=== PATIENT | female | born 1990 | race Two or more races ===

== ENCOUNTER 2022-10-29 08:23 | Emergency (ER) | payer MEDICARE, MEDICAID ==
[~2022-10-29] VITALS: Ht 157.5 cm; Wt 50.0 kg
[2022-10-29 09:00] VITALS: BP 123/79
[2022-10-29 09:15] LABS: Calcium 8.5 mg/dL (8.5-10.1); Potassium 3.9 mmol/L (3.5-5.1)
[2022-10-29 09:20] LABS: BUN/Creatinine Ratio 24.2 (10.0-20.0); Bilirubin, Total 0.3 mg/dL (0.2-1.0); Total Protein 6.4 g/dL (6.4-8.2)
[2022-10-29 09:31] LABS: Basophils # (auto) 0 10 ^3/uL (0-0.2); Basophils % (auto) 0.3 % (0.0-2.0); Eosinophils # (auto) 0.1 10 ^3/uL (0-0.8); Eosinophils % (auto) 0.8 % (0.0-7.0); Hemoglobin 13.8 g/dL (12.2-16.2); Lymphocytes # (auto) 0.9 10 ^3/uL (0.4-5.4); Lymphocytes % (auto) 11.5 % (10.0-50.0); Mean Corpuscular Hemoglobin 33.9 pg (28.0-32.0); Mean Corpuscular Hgb Conc. 33.8 g/dL (32.0-36.0); Mean Corpuscular Volume 100.3 fL (80.0-100.0); Monocytes # (auto) 0.3 10 ^3/uL (0-1.3); Monocytes % (auto) 3.5 % (0.0-12.0); Neutrophils # (auto) 6.2 10 ^3/uL (1.6-8.6); Neutrophils % (auto) 83.9 % (37.0-80.0); Nucleated Red Blood Cells % 0.1 %; Red Blood Cells 4.09 10^6/uL (4.0-5.20); Red Cell Distribution Width 14.4 % (11.8-14.3); White Blood Cell 7.4 10^3/uL (4.4-10.8)
== END 2022-10-29 11:25 | disposition home or self-care (01) ==
LOC: ER 08:23 → EDBD 08:23 → ER 11:25
DX: E11.649 Type 2 diabetes mellitus with hypoglycemia without coma (principal)
CPT/HCPCS: 36415; 80053; 82962; 83036

== ENCOUNTER 2023-04-07 03:56 | Inpatient (IN) | payer MEDICARE, MEDICAID ==
[~2023-04-07] VITALS: Ht 160 cm; Wt 45.3 kg
[2023-04-07 04:35] LABS: Basophils # (auto) 0 10 ^3/uL (0-0.2); Lymphocytes # (auto) 1.7 10 ^3/uL (0.4-5.4); Lymphocytes % (auto) 17.3 % (10.0-50.0); Monocytes # (auto) 0.5 10 ^3/uL (0-1.3); Neutrophils # (auto) 7.2 10 ^3/uL (1.6-8.6)
[2023-04-07 04:36] LABS: Basophils % (auto) 0.4 % (0.0-2.0); Eosinophils # (auto) 0.4 10 ^3/uL (0-0.8); Eosinophils % (auto) 4.1 % (0.0-7.0); Hematocrit 49.9 % (36.0-46.0); Hemoglobin 16.7 g/dL (12.2-16.2); Mean Corpuscular Hemoglobin 34.1 pg (28.0-32.0); Mean Corpuscular Hgb Conc. 33.4 g/dL (32.0-36.0); Mean Corpuscular Volume 101.9 fL (80.0-100.0); Monocytes % (auto) 4.9 % (0.0-12.0); Neutrophils % (auto) 73.3 % (37.0-80.0); Red Blood Cells 4.89 10^6/uL (4.0-5.20); Red Cell Distribution Width 13.7 % (11.8-14.3); White Blood Cell 9.8 10^3/uL (4.4-10.8)
[2023-04-07 04:50] VITALS: PULSE 101; RESP 18; O2SAT 97
[2023-04-07 04:50] LABS: Alanine Aminotransferase 13 U/L (7-40); Albumin 4.1 g/dL (3.2-4.8); Alkaline Phosphatase 55 U/L (46-116); Anion Gap 4.1 (5-15); Aspartate Aminotransferase < 8 U/L (13-40); BUN/Creatinine Ratio 17.8 (10.0-20.0); Blood Urea Nitrogen 13 mg/dL (9-23); Calcium 9.2 mg/dL (8.7-10.4); Carbon Dioxide 30.9 mmol/L (20-30); Chloride 111 mmol/L (98-107); Magnesium 1.8 mg/dL (1.6-2.6); Potassium 4.1 mmol/L (3.5-5.1); Sodium 146 mmol/L (136-145)
[2023-04-07 04:51] LABS: Bilirubin, Total 0.5 mg/dL (0.2-1.0); Partial Thromboplastin Time 22.4 SEC (24.5-34.5); Prothrombin Time 10.5 sec (9.3-11.8); Total Protein 6.7 g/dL (5.7-8.2)
[2023-04-07 05:03] LABS: Glucose 30 mg/dL (74-106)
[2023-04-07] MEDS ORDERED: DEXTROSE 50% SYRINGE 50 ML IV ONE (05:07)
[2023-04-07] MEDS ORDERED: DEXTROSE 10% 1,000 ML IV ONE ×2 (05:15→05:44)
[2023-04-07] MEDS ORDERED: DEXTROSE (50%) 50ML SYRG IV ONE (06:30)
[2023-04-07] MEDS ORDERED: SODIUM CHLORIDE 0.9% 1,000 ML IV ONE ×2 (07:00)
[2023-04-07 07:39] LABS: Urine Bacteria FEW /hpf (None Seen); Urine Blood 1+ /uL (Negative); Urine Clarity Clear (Clear); Urine Hyaline Cast FEW /lpf (0 - 2); Urine Protein, UAD TRACE (Negative); Urine Specific Gravity 1.017 (1.001-1.035); Urine Urobilinogen Normal (Negative); Urine WBC 7 /hpf (0 - 5)
[2023-04-07 07:48] LABS: Urine Color Straw (Yellow)
[2023-04-07 09:35] VITALS: PULSE 84; RESP 14; O2SAT 95
[2023-04-07] MEDS ORDERED: InsuLIN REG 1unit/0.01ml Soln (100units/ml) SC ONE ×2 (09:45→12:30)
[2023-04-07] MEDS ORDERED: D5W 5% 1,000 ML IV SCH (10:15)
[2023-04-07] MEDS ORDERED: DOCUSATE SOD 100 MG CAP PO PRN (10:15)
[2023-04-07] MEDS ORDERED: MORPHINE SULFATE INJ 2 MG/ml SYRG IV PRN ×2 (10:15)
[2023-04-07] MEDS ORDERED: NITROGLYCERIN 0.4 MG SL TAB SL PRN (10:15)
[2023-04-07] MEDS ORDERED: HYDROcodone-ACET 5/325MG TAB PO PRN (10:15)
[2023-04-07] MEDS ORDERED: ACETAMINOPHEN 325 MG TAB PO PRN (10:15)
[2023-04-07] MEDS ORDERED: ONDANSETRON HCL 4 MG/2 ML VIAL IV PRN (10:15)
[2023-04-07] MEDS ORDERED: LORazepam 0.5 MG TAB PO PRN (10:15)
[2023-04-07] MEDS ORDERED: DEXTROSE (50%) 50ML SYRG IV PRN (12:30)
[2023-04-07 13:23] LABS: Amphetamine Screen, Urine Neg (NEGATIVE); Benzodiazephine Screen, Urine Neg (NEGATIVE)
[2023-04-07 13:24] LABS: Barbiturate Scree,Urine Neg (NEGATIVE); Cannabinoid Screen, Urine Neg (NEGATIVE); Cocaine Screen, Urine Neg (NEGATIVE); Opiate Scree,Urine Neg (NEGATIVE); Phencyclidine Screen, Urine Neg (NEGATIVE)
[2023-04-07 14:06] LABS: Magnesium 1.8 mg/dL (1.6-2.6)
[2023-04-07] MEDS: InsuLIN REG 1unit/0.01ml Soln (100units/ml) SC SCH (16:12)
[2023-04-07] MEDS ORDERED: cefTRIAXone 1GM/50ML D5W 50 ML IV ONE (16:30)
[2023-04-07] MEDS: ACCU-CHEK COMFORT CURVE STRIP VI SCH (16:44)
[2023-04-07 19:35] VITALS: PULSE 99; RESP 25; O2SAT 97
[2023-04-07] MEDS ORDERED: InsuLIN REG 1unit/0.01ml Soln (100units/ml) SC SCH (22:00)
[2023-04-08] MEDS: ACCU-CHEK COMFORT CURVE STRIP VI SCH ×3 (00:25→11:44)
[2023-04-08 02:00] VITALS: BP 108/76; PULSE 87; RESP 18; TEMP 98; O2SAT 98
[2023-04-08] MEDS ORDERED: MULT-1056 PO (02:23)
[2023-04-08] MEDS ORDERED: CONT1KIT21 (02:23)
[2023-04-08] MEDS ORDERED: IBUP-1455 PO (02:23)
[2023-04-08] MEDS ORDERED: INSU31MI32 SC (02:23)
[2023-04-08] MEDS ORDERED: PROP1TAB53 PO (02:23)
[2023-04-08] MEDS ORDERED: DOCU-265 PO (02:23)
[2023-04-08] MEDS ORDERED: ESCI1TAB37 PO (02:23)
[2023-04-08] MEDS ORDERED: LISI2.5T47 PO (02:23)
[2023-04-08] MEDS ORDERED: NORGTAB59 PO (02:23)
[2023-04-08] MEDS ORDERED: CABE0.5T PO (02:23)
[2023-04-08] MEDS ORDERED: ARIP10TA30 PO (02:23)
[2023-04-08] MEDS ORDERED: METF-1145 PO (02:23)
[2023-04-08] MEDS ORDERED: ASCO500T6 PO (02:23)
[2023-04-08] MEDS ORDERED: FERR325T20 PO (02:23)
[2023-04-08] MEDS ORDERED: TRAZ-228 PO (02:23)
[2023-04-08 05:00] VITALS: BP 111/71; PULSE 91; RESP 16; TEMP 98.3; O2SAT 96
[2023-04-08] MEDS: InsuLIN REG 1unit/0.01ml Soln (100units/ml) SC SCH ×2 (06:10→11:30)
[2023-04-08 06:28] LABS: Basophils # (auto) 0 10 ^3/uL (0-0.2); Basophils % (auto) 0.3 % (0.0-2.0); Eosinophils # (auto) 0.4 10 ^3/uL (0-0.8); Eosinophils % (auto) 4.7 % (0.0-7.0); Hematocrit 43.3 % (36.0-46.0); Hemoglobin 14.4 g/dL (12.2-16.2); Lymphocytes # (auto) 3.2 10 ^3/uL (0.4-5.4); Lymphocytes % (auto) 37.2 % (10.0-50.0); Mean Corpuscular Hemoglobin 33.8 pg (28.0-32.0); Mean Corpuscular Hgb Conc. 33.1 g/dL (32.0-36.0); Monocytes # (auto) 0.6 10 ^3/uL (0-1.3); Monocytes % (auto) 6.6 % (0.0-12.0); Neutrophils # (auto) 4.4 10 ^3/uL (1.6-8.6); Neutrophils % (auto) 51.2 % (37.0-80.0); Nucleated Red Blood Cells % 0.1 %; Red Blood Cells 4.25 10^6/uL (4.0-5.20); Red Cell Distribution Width 13.5 % (11.8-14.3); White Blood Cell 8.6 10^3/uL (4.4-10.8)
[2023-04-08 06:42] LABS: Alanine Aminotransferase 11 U/L (7-40); Albumin 3.4 g/dL (3.2-4.8); Alkaline Phosphatase 47 U/L (46-116); Anion Gap 7.6 (5-15); Aspartate Aminotransferase 12 U/L (13-40); BUN/Creatinine Ratio 12.7 (10.0-20.0); Bilirubin, Total 0.5 mg/dL (0.2-1.0); Blood Urea Nitrogen 8 mg/dL (9-23); Calcium 8.4 mg/dL (8.5-10.1); Carbon Dioxide 25.4 mmol/L (20-30); Chloride 113 mmol/L (98-107); Glucose 83 mg/dL (74-106); Potassium 3.4 mmol/L (3.5-5.1); Sodium 146 mmol/L (136-145); Total Protein 5.9 g/dL (5.7-8.2)
[2023-04-08] MEDS ORDERED: CYANOCOBALAMIN (B-12) 1000 MCG/1 ML VIAL IM ONE (07:30)
[2023-04-08 08:00] VITALS: BP 120/82; PULSE 92; RESP 22; TEMP 98; O2SAT 96
[2023-04-08 08:38] VITALS: BP 120/82; PULSE 96; RESP 22; TEMP 98; O2SAT 92
[2023-04-08] MEDS ORDERED: cefTRIAXone 1GM/50ML D5W 50 ML IV SCH (09:00)
[2023-04-08] MEDS ORDERED: POTASSIUM CHL 10 Meq TABLET PO ONE (09:15)
[2023-04-08] MEDS ORDERED: CALCIUM CHL 100MG/ML 500 MG in D5W 5% 100 ML IV ONE (09:15)
[2023-04-08] MEDS ORDERED: ENOXAPARIN SOD 40 MG/0.4 ML SYRINGE SC SCH (10:00)
[2023-04-08] MEDS ORDERED: CEPH250C PO (10:24)
[2023-04-09] MEDS ORDERED: CYANOCOBALAMIN 500 MCG TAB PO SCH (10:00)
== END 2023-04-08 11:30 | disposition home or self-care (01) | DRG 637 ==
LOC: EDBD 03:56 → ER 03:56 → TELE 10:17 → TELE-WESTW 04-08 01:14
PROVIDERS: ADMIT Internal Medicine; ATTEND Internal Medicine
DX: E10.649 Type 1 diabetes mellitus with hypoglycemia without coma (principal); G93.41 Metabolic encephalopathy; N39.0 Urinary tract infection, site not specified; E10.65 Type 1 diabetes mellitus with hyperglycemia; F79 Unspecified intellectual disabilities; R62.50 Unspecified lack of expected normal physiological development in childhood; Z79.4 Long term (current) use of insulin; Z96.41 Presence of insulin pump (external) (internal)
CPT/HCPCS: 36415; 71045; 80053; 80061; 80307; 81001; 82306; 82607; 82746; 82962; 83036; 83735; 83880; 84443; 84484; 85025; 85610; 85730; 93005; 96361; 96374; G0378; J0696; J1815; J7060